=== PATIENT | male | born 1980 | race Caucasian/White ===

== ENCOUNTER 2016-09-13 07:51 | Day surgery (SDC) | payer BC ==
[~2016-09-13] VITALS: Ht 180.3 cm; Wt 137.3 kg
== END 2016-09-13 14:05 | disposition home or self-care (01) ==
LOC: SSS 07:51
PROC: 009U3ZZ Drainage of Spinal Canal, Percutaneous Approach (ICD-10-PCS; principal; 2016-09-13)
PROC: B01BYZZ Fluoroscopy of Spinal Cord using Other Contrast (ICD-10-PCS; principal; 2016-09-13)
DX: H53.8 Other visual disturbances (principal); R51 Headache; Z79.899 Other long term (current) drug therapy